=== PATIENT | female | born 1975 | race African-American/Black ===

== ENCOUNTER 2021-11-12 11:06 | Emergency (ER) | payer OTHER ==
[~2021-11-12] VITALS: Ht 165.1 cm; Wt 63.5 kg
--- NOTE | 2021-11-12 11:10 | NUR ---
PT BIB SELF FROM HOME C/O VAGINAL BLEEDING SINCE 6 DAYS AGO AFTER A PROCEDURE ([facility]) WAS DONE. PT A/OX4. TOLERATING R/A WELL WITH SOB.
--- NOTE | 2021-11-12 11:49 | NUR ---
URINE COLLECTED AND SENT TO LAB
--- NOTE | 2021-11-12 11:49 | NUR ---
James cisneros in EDM - 11/12/21 at 1151 by PREETI PT BIB SELF FROM HOME C/O VAGINAL BLEEDING SINCE 6 DAYS AGO AFTER A PROCEDURE ([facility]) WAS DONE. PT A/OX4. TOLERATING R/A WELL WITH SOB.
[2021-11-12 12:39] LABS: BASOPHILS % (AUTO) 1.5 % (0.0-2.0); EOSINOPHILS % (AUTO) 3.7 % (0.0-6.0); HEMATOCRIT 44 % (33-45); HEMOGLOBIN 14.3 g/dL (11.5-14.8); LYMPHOCYTES # (AUTO) 1.3 K/uL (0.8-4.8); LYMPHOCYTES % (AUTO) 51.3 % (20.0-44.0); MEAN CORPUSCULAR HGB CONC 33 g/dl (31.0-36.0); MEAN CORPUSCULAR VOLUME 96 fL (82-100); MONOCYTES # (AUTO) 0.4 K/uL (0.1-1.30); MONOCYTES % (AUTO) 13.9 % (2.0-12.0); NEUTROPHILS # (AUTO) 0.8 K/uL (1.8-8.9); NEUTROPHILS % (AUTO) 29.6 % (43.0-81.0); PLATELET COUNT (AUTO) 238 K/uL (150-450); RED BLOOD CELL COUNT(AUTO) 4.56 MIL/uL (4.0-5.2); WHITE BLOOD COUNT (AUTO) 2.6 K/uL (4.3-11.0)
--- NOTE | 2021-11-12 12:54 | NUR ---
US TECH AT PT'S BEDSIDE
[2021-11-12 13:20] VITALS: BP 134/70
== END 2021-11-12 13:20 | disposition home or self-care (01) ==
LOC: ER 11:13
DX: N93.8 Other specified abnormal uterine and vaginal bleeding (principal); D25.9 Leiomyoma of uterus, unspecified
CPT/HCPCS: 36415; 76856-TC; 84703-TC; 85025-TC